=== PATIENT | male | born 1950 | race Caucasian/White ===

== ENCOUNTER → 2022-04-07 | Outpatient (REF) | payer MEDICARE, BC ==
[2022-04-07 16:12] LABS: APPEARANCE, URINE MANUAL CLEAR (CLEAR); BILIRUBIN, URINE MANUAL NEGATIVE (NEGATIVE); BLOOD URINE MANUAL TRACE (NEGATIVE); COLOR, URINE MANUAL COLORLESS (YELLOW); GLUCOSE, URINE (UA) MANUAL NEGATIVE (NEGATIVE); KETONE, URINE MANUAL NEGATIVE (NEGATIVE); LEUKOCYTE ESTERASE, URINE MAN NEGATIVE (NEGATIVE); NITRITE, URINE MANUAL NEGATIVE (NEGATIVE); PROTEIN, URINE MANUAL NEGATIVE (NEGATIVE); SPECIFIC GRAVITY,URINE MANUAL 1.005 (1.002-1.035); UROBILINOGEN, URINE MANUAL NORMAL (NORMAL)
[2022-04-07 16:40] LABS: BACTERIA, URINE NONE SEEN; RBC, URINE 0-1 /hpf (0-3); SQUAMOUS EPITHELIAL CELL URINE NONE SEEN /hpf (SMALL AMT); WBC, URINE 0-1 /hpf (0-3)
== END ==
LOC: M SMT 15:50
PROVIDERS: ATTEND Nurse Practitioner Women's Health
DX: R31.29 Other microscopic hematuria (principal)

== ENCOUNTER 2023-08-08 21:21 | Emergency (ER) | payer MEDICARE, BC ==
[~2023-08-08] VITALS: Ht 157.5 cm; Wt 72.8 kg
[2023-08-08 21:24] VITALS: TEMP 98.2
[2023-08-09] MEDS: MIDAZOLAM INJ 2MG/2ML VIAL IV STA (00:38)
[2023-08-09] MEDS: fentaNYL 100 MCG/2 ML INJECTION IV ONE ×2 (00:41→01:00)
[2023-08-09] MEDS: NS 1,000 ML IV SCH (00:44)
[2023-08-09] MEDS: MIDAZOLAM INJ 2MG/2ML VIAL IV ONE (01:00)
[2023-08-09 01:12] VITALS: BP 121/58; O2SAT 99
== END 2023-08-09 01:29 | disposition home or self-care (01) ==
LOC: M ED 21:21 → EDSEX 21:21 → M ED 08-09 01:29
DX: S43.005A Unspecified dislocation of left shoulder joint, initial encounter (principal); S42.252A Displaced fracture of greater tuberosity of left humerus, initial encounter for closed fracture; W19.XXXA Unspecified fall, initial encounter; I10 Essential (primary) hypertension; E78.5 Hyperlipidemia, unspecified; Z87.442 Personal history of urinary calculi; Z88.1 Allergy status to other antibiotic agents; Y92.9 Unspecified place or not applicable; Y93.9 Activity, unspecified; Y99.9 Unspecified external cause status; M25.512 Pain in left shoulder; R93.6 Abnormal findings on diagnostic imaging of limbs
CPT/HCPCS: 73020; 73030; 96374; 96375; 99284; J2250; J3010

== ENCOUNTER → 2023-08-09 | Outpatient (CLI) | payer MEDICARE, BC | LOC: M SOG 11:53 | PROVIDERS: ATTEND Physician Assistant | DX: M25.512 Pain in left shoulder (principal); R93.6 Abnormal findings on diagnostic imaging of limbs ==

== ENCOUNTER → 2023-09-21 | Outpatient (CLI) | payer MEDICARE, BC | LOC: M SOG 07:53 | PROVIDERS: ATTEND Physician Assistant | DX: M19.012 Primary osteoarthritis, left shoulder (principal); M75.32 Calcific tendinitis of left shoulder ==